=== PATIENT | female | born 1965 | race Caucasian/White ===

== ENCOUNTER → 2018-03-20 15:02 | Emergency (ER) | payer OTHER, SELFPAY ==
--- NOTE | 2018-03-20 15:02 | DT_ITS ---
This patient was seen during an EMR downtime March 20, 2018 - March 27, 2018. This patient may have a combination of paper and electronic documentation or all paper documentation. All documentation is viewable within the e-chart portion of [facility] for each patient visit.
--- NOTE | 2018-03-20 15:34 | CT_ITS ---
STUDY: CT BRAIN WITHOUT CONTRAST REASON FOR EXAM: Female, 53 years old. Headache RADIATION DOSAGE (If Supplied By Facility): CTDIvol = ( 60.81 ) mGy, DLP = ( 1021.47 ) mGycm TECHNIQUE: Transaxial CT imaging of the brain was performed without administration of intravenous contrast material. Individualized dose optimization techniques were used for this CT. COMPARISON: None. FINDINGS: Normal soft tissue structures. Normal calvarium. Normal size ventricles and extra-axial spaces for the patient's age. Normal white matter tracts of the cerebral hemispheres. Normal basal ganglia and thalami. Normal brainstem. Normal cerebellum. There is no intracranial hemorrhage. There are no findings of an acute ischemic infarction. There is minimal mucosal thickening of the maxillary sinuses. CT/Brain/Head without Contrast IMPRESSION: Minimal mucosal thickening of the maxillary sinuses. The study is otherwise unremarkable. Electronically Signed: Dariusz Tavares MD at 17:16 EDT , Service support ,
[2018-03-23 10:40] LABS: Glucose 127 mg/dL (74-106)
[2018-03-23 10:41] LABS: Anion Gap 7 (5-15); BUN 14 mg/dL (7-18); BUN/Creat Ratio 20.9 RATIO (10-20); Calcium,Total 8.7 mg/dL (8.5-10.1); Chloride 110 mmol/L (98-107); Creatinine, Serum 0.67 mg/dL (0.55-1.02); EST Glomerular Filtration Rate 97 mL/min (>60); Est Glom Filt Rate - Afr Amer 118 mL/min (>60); Potassium 3.7 mmol/L (3.5-5.1); Sodium Level 140 mmol/L (136-145)
[2018-03-24 10:44] LABS: Absolute Lymphocyte Count 1.39 X10^3/ul (0.83-4.51); Absolute Neutrophil Count 4.7 X10^3/uL (2.0-7.7); Basophil# 0.02 X10^3/uL; Basophil% 0.3 % (0-1); Eosinophil# 0.13 X10^3/uL; Hematocrit 36.7 % (37-47); Hemoglobin 12.2 g/dl (12.0-15.0); Lymphocyte # 1.39 X10^3/ul (4.0); Mean Corp Hgb Conc 33.2 g/gl (32-36); Mean Corpuscular Hgb 32.1 pg (27.0-32.0); Mean Corpuscular Volume 96.6 fL (81-99); Mean Platelet Vol. 10.8 fl (6.2-12.0); Monocyte# 0.41 X10^3/uL; Monocyte% 6.2 % (0-10); Neutrophil # 4.68 X10^3/uL (2.7-7.7); Neutrophil % 70.5 % (47-70); POSITIVE COUNT NO; POSITIVE DIFFERENTIAL NO; POSITIVE MORPHOLOGY NO; Platelet Count 203 K/mm3 (150-450); RBC Distribution Width CV 11.9 % (11.6-14.6); RBC Distribution Width SD 40.5 fl (35.1-43.9); White Blood Count 6.6 K/mm3 (4.4-11.0)
== END ==
PROVIDERS: Emergency Medicine; Emergency Provider Emergency Medicine; Family Provider Family Medicine; PCP Family Medicine
DX: R51 Headache (principal); J32.9 Chronic sinusitis, unspecified; E03.9 Hypothyroidism, unspecified; Z79.899 Other long term (current) drug therapy; Z87.891 Personal history of nicotine dependence
CPT/HCPCS: 36415; 70450; 80048; 85025; 96361; 96374; 96375; 99284; J7030; A4216

== ENCOUNTER 2019-04-23 08:00 | Outpatient (RCR) | payer OTHER, SELFPAY ==
--- NOTE | 2019-04-16 07:43 | HP.PTEVAL ---
Patient's Visit Information KRISH ECHEVERRIA is a 54 year old F referred to Physical Therapy by Guru Kong MD with a diagnosis of L shoulder pain. Date of Evaluation: 04/16/19 Physical Therapist: Clifford Villalobos, NIAT, OCS, CSCS - Visit Plan Frequency: 1x/Week Duration: 4-6 Weeks Plan: weekly to progress HEP for shoulder nad postural strength, ensure activity modification for hammer theory, stretch pecs. ice as needed. - Subjective Findings: L shoulder hurts since October worsening possibly due to tetanus booster according to patient. Can't point to anything else. Did start a workout in October. Hard to sleep at night now. 5/10 at night, comfortable at rest and low elevations. Dulla ache most of time 1/10. 6 hours per night sleep but shoulder may keep her up in middle of night. 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 Especially overhead. Basic ADLs are OK except moving in certain ways overhead. Folding laundry and hanging up can be difficult. Doctor sent here after annual physical. No other treatment or diagnostics yet. Does ballroom dancing which can hurt. - Pain L shoulder Pain Intensity (Out of 10): 1 Pain Intensity Range: 1, 4 - Objective Posture is slight forward head and prottracted scapula. Tender to palpation mildly over L supraspinatus insertion. + neer test, - Gomes Subhash. - ext rotation lag test. - sulcus. - drop arm. Full UE AROM B but L hurts end range of ext rot, int rot, and flexion. strength is 4/5 L abd, ext rotation both with pain, 4+ rhomboids and flexion , 5/.5 IT, biceps, triceps and wrist all on L. R shoulder and elbow and wrist 5/5. reflexes 2/3 bi and tri. Sensation B UE WNL to gross light touch. Normal transfers and gait. - Goals Goal 1:: Sleep without being kept up at night. Goal Time Frame: 4-6 Weeks Goal 2:: Reach overhead and behind back without pain. Goal Time Frame: 4-6 Weeks Goal 3:: Pt feel 90% back to normal in L shoulder with no greater than transient 1/10 pain. Goal Time Frame: 4-6 Weeks Goal 4:: I appropr HEP to minimize future problems. Goal Time Frame: 4-6 Weeks - Rehabilitation Potential Physical Therapy Diagnosis: L shoulder pain likely supraspinatus tendonitis Rehabilitation Potential: Fair - Anticipated Interventions Patient/Client Instruction: Educate patient on: Condition, Plan of Care For the Purpose of:: To decrease pain, To improve nutrient delivery to tissue, To increase tolerance to activity/condition/position Therapeutic Exercise to Include: Strength training, Flexibilty training, Scapular Strength/Stabilization For the Purpose of:: To decrease pain, To increase tolerance to activity/condition/position, To improve ability of physical actions for home/community/work/leisure Manual Therapy Techniques to Include: Mobilization For the Purpose of:: To improve muscle performance and motor function, To increase tolerance to activity/condition/position Cryotherapy (ice pack, ice massage): Yes For the Purpose of:: To decrease swelling/inflammation Thank you for the opportunity to evaluate your patient. For Medicare and Medicare HMO plans, please review the plan of care and approve it. It will need to be FAXED BACK to us at [phone] for Medicare purposes. For Medicare only, by signing this I certify the plan of care. Please let me know if there are questions or concerns regarding this plan of care. Physician Signature: Date:
--- NOTE | 2019-07-05 10:49 | HP.PT.NRP ---
HP - Discharge Summary (1) - Patient Information KRISH ECHEVERRIA was seen in my office for initial evaluation on 04/16/19. The following Plan of Care was established for this patient: Initial Frequency: 1x/Week Initial Duration: 4-6 Weeks - Anticipated Interventions Patient/Client Instruction: Educate patient on: Condition, Plan of Care For the Purpose of:: To decrease pain, To improve nutrient delivery to tissue, To increase tolerance to activity/condition/position Therapeutic Exercise to Include: Strength training, Flexibilty training, Scapular Strength/Stabilization For the Purpose of:: To decrease pain, To increase tolerance to activity/condition/position, To improve ability of physical actions for home/community/work/leisure Manual Therapy Techniques to Include: Mobilization For the Purpose of:: To improve muscle performance and motor function, To increase tolerance to activity/condition/position Cryotherapy (ice pack, ice massage): Yes For the Purpose of:: To decrease swelling/inflammation This patient was last seen in our office 05/03/19. Pertinent comments regarding their Physical therapy will appear below: Pt seen two visits of POC and neglected to schedule or attend any further visits. I will discontinue due to non attendance as it has been over two months. At this point I will be discontinuing this patient from physical therapy. I would be happy to see this patient again in the future if found appropriate by the physician. Thank you! Clifford Villalobos, DPT, OCS, CSCS
== END 2019-04-23 19:00 | disposition home or self-care (01) ==
LOC: PT 08:00
PROVIDERS: Family Provider Family Medicine; PCP Family Medicine; Referring Provider Family Medicine; Visit Provider Family Medicine
DX: M25.512 Pain in left shoulder (principal)
CPT/HCPCS: 97110; 97161

== ENCOUNTER 2020-05-06 08:05 | Emergency (ER) | payer OTHER, SELFPAY ==
[2020-05-06 08:06] VITALS: BP 137/82; PULSE 68; RESP 16; TEMP 36.3; O2SAT 100; BMI 27.1
--- NOTE | 2020-05-06 08:40 | RAD_ITS ---
STUDY: X-RAY - CERVICAL SPINE REASON FOR EXAM: Female, 55 years old. Fell down steps Perry, pain, nausea, dizziness, FUNEZ TECHNIQUE: 3 view(s) of the cervical spine were obtained. COMPARISON: None FINDINGS: Normal anterior atlantoaxial articulation. Normal odontoid process. There is straightening of the normal cervical lordosis. Normal vertebral bodies and endplates. Mild disc space narrowing. Normal visualized intervertebral neuroforamina. The soft tissue structures are unremarkable. RAD/Cerv Spine 2 or 3 Views IMPRESSION: Mild degenerative changes, no acute findings Electronically Signed: Billy Dobbs MD at 8:58 EDT , Service support ,
--- NOTE | 2020-05-06 08:40 | RAD_ITS ---
STUDY: X-RAY - PELVIS REASON FOR EXAM: Female, 55 years old. Fell down steps Tuesday, pain, nausea, dizziness, FUNEZ TECHNIQUE: One view of the pelvis was obtained. COMPARISON: None. FINDINGS: There is a non-specific bowel gas pattern. Normal visualized soft tissue structures. Normal bilateral iliac wings, sacroiliac joints and visualized sacrum. Normal visualized bilateral superior and inferior pubic rami. Normal pubic symphysis. Normal ischial tuberosities. Normal visualized right femoral head. Normal right acetabulum. Normal right hip joint. Normal visualized left femoral head. Normal left acetabulum. Normal left hip joint. RAD/Pelvis 1 or 2 Views IMPRESSION: Normal x-ray examination of the pelvis. Electronically Signed: Billy Dobbs MD at 8:58 EDT , Service support ,
--- NOTE | 2020-05-06 09:23 | ED.DCSUM_ITS ---
- ER Visit Summary Date of Service: 05/06/20 Chief Complaint: [Fall] History of Present Illness: The patient is a 55 F [presents to the emergency department after sustaining a fall 5 days ago. Patient states that she was coming down the steps when she slipped and fell onto her buttocks. Patient then slid down about 6 steps. She does not believe that she hit her head. She denies loss of consciousness. Patient states that over the last 5 days she has had discomfort in her neck and intermittent headaches. She has had some intermittent dizziness. Patient denies any chest or abdomen pain. She has had some nausea but no vomiting. Patient does complain of bruising to her right buttock. She denies any numbness or tingling in extremities. She denies weakness in extremities. She is not anticoagulated. She tells me she has no medical history otherwise. Patient is a smoker.] Physical Examination: [HEENT-PERRLA, EOMI. Cranial nerves II through XII grossly intact. TMs clear. Mucous membranes moist. No adenopathy. No external evidence of trauma to her head. No hemotympanum. Patient does have some mild diffuse tenderness over the cervical paraspinal musculature. Minimal tenderness over the cervical spine. Cardiovascular-regular rate and rhythm without murmur or ectopy Lungs-clear to auscultation, chest wall stable without crepitus or subcu emphysema Abdomen-normoactive bowel sounds, soft, nontender, no rebound or rigidity, no peritoneal signs. Neuro dfsm-kdqmlr-hrwg and heel agosto testing within normal limits, negative Romberg, negative , Fundi benign Extremities-intact ?4, normal range of motion, normal pulses. Right buttock- patient does have some ecchymosis and bruising noted to the medial aspect of her right buttock. No significant tenderness over the sacrum or coccyx.] Test Results: [X-rays of the cervical spine obtained showed degenerative changes without any evidence of fracture or dislocation. X-rays of the pelvis obtained showed no fractures.] Emergency Department Course and Treatment: [This point discussed results with patient. I do not feel CT imaging of her brain is indicated. Patient had no evidence of injury to her head. She is not been vomiting. She had a normal neurologic exam.] Treatment Plan: [Patient advised use ibuprofen or Tylenol for discomfort. She is advised to push fluids. Patient to follow-up with her primary care physician within the next 3 to 5 days.] Disposition: [Discharged home in stable condition] Impression: [Mechanical fall Cervical strain Contusion right buttock] This note was generated with [employer] dictation software. It may contain incorrect words, spelling, and punctuation that were not noted in review of the chart prior to signing ED Disposition - Plan for ED Patient: Referrals: Guru Kong MD [Primary Care Provider] -
--- NOTE | 2020-05-06 09:27 | ED.DEP ---
ED Disposition - Plan for ED Patient: Instructions: ED Mechanical Fall, ED Sprain Strain Neck, ED SOFT TISSUE CONTUSION Referrals: Guru Kong MD [Primary Care Provider] - 3-5 Days
[2020-05-06 09:36] VITALS: BP 131/74; PULSE 81; RESP 18; O2SAT 100
--- NOTE | 2020-05-06 09:37 | ED.RN ---
THIS NURSE REVIEWED D/C INSTRUCTIONS WITH PT AND VISITOR. PT VERBALIZED UNDERSTANDING OF INSTRUCTIONS. PT DENIES FURTHER NEEDS OR QUESTIONS AT THIS TIME. PT AMBULATES FROM ROOM ON OWN WITHOUT ASSISTANCE FROM STAFF OR VISITOR.
== END 2020-05-06 09:38 | disposition home or self-care (01) ==
PROVIDERS: Emergency Provider Emergency Medicine; PCP Family Medicine
DX: S16.1XXA Strain of muscle, fascia and tendon at neck level, initial encounter (principal); W10.9XXA Fall (on) (from) unspecified stairs and steps, initial encounter; Y93.89 Activity, other specified; Y92.89 Other specified places as the place of occurrence of the external cause; Y99.9 Unspecified external cause status; S30.0XXA Contusion of lower back and pelvis, initial encounter; Z72.0 Tobacco use
CPT/HCPCS: 72040; 72170; 99282

== ENCOUNTER 2023-05-23 01:26 | Emergency (ER) | payer OTHER, SELFPAY ==
[2023-05-23 01:27] VITALS: BP 131/76; PULSE 70; RESP 16; TEMP 35.9; O2SAT 97; BMI 23.4
--- NOTE | 2023-05-23 01:47 | EX.ED.DYSGE1 ---
HPI History of Present Illness Chief Complaint: Other, Pain/Inj Informant: patient Narrative Narrative: Patient presents with a worsening rash. Patient states that approximately week ago she had a sore on her right lower chin area. 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 She was seen in urgent care Tuesday morning. They started her on mupirocin and Keflex. It really has not made any notable change although the area on her chin is starting to dry up. But since starting the medicine she has noticed more lesions on her posterior neck and around her ear. They burn staying and itch. They are only on the right side. Of note, patient did have chickenpox when she was about 30 years old. She has never had shingles. [facility] Medical History Hypothyroid Home Medications acyclovir 800 mg tablet 800 mg PO 5X/DAY #35 TABLETS 05/23/23 [Rx Last Taken Unknown] hydrocodone-acetaminophen 5-325mg 5mg-325mg 1 tab PO Q6H PRN PRN Pain 3 days #10 TABLETS 05/23/23 [Rx Last Taken Unknown] levothyroxine 100 mcg tablet (Synthroid) 100 mcg PO DAILY 05/23/23 [History Last Taken Unknown] prednisone 10 mg tablet 10 mg PO DAILY #48 TABLETS 05/23/23 [Rx Last Taken Unknown] Allergy/AdvReac Type Severity Reaction Status Date / Time Penicillins Allergy Anaphylaxis Verified 05/06/20 08:08 Social History Smoking Status: Current every day smoker tobacco type: cigarettes ROS ROS ED Constitutional Constitutional ED: Denies chills, fever(s), subjective, sweats or weight loss Eyes Eyes: Denies blurry vision, change in vision or diplopia ENT ENT ED: Denies rhinorrhea or sore throat Cardiovascular Cardiovascular: Denies chest pain Respiratory/Chest Respiratory/Chest: Denies cough Gastrointestinal Gastrointestinal: Denies nausea or vomiting Musculoskeletal Musculoskeletal: Reports neck pain Integumentary Reports rash Neurologic Neurologic: Denies headache(s), paresthesias or weakness Hematologic/Lymphatic Hematologic/Lymphatic: Denies easy bleeding, easy bruising or lymphadenopathy Allergic/Immunologic Allergic/Immunologic ED: Denies mouth swelling, tongue swelling or urticaria EXAM Physical Exam Narrative Exam Narrative: Patient awake alert no acute distress sitting comfortably in bed. HEENT showed a dry area of lesions just on the lower edge of the right mandible. But she has a few areas of erythema at the lower portion of her mandible below the earlobe. And then on the back of the nape of the neck occipital area of her head. These are raised red in a couple of them are vesicular. They are all on the right side. They do not look like abscesses. These look more like shingles. Eyes show no involvement at all. Yanez sign is negative. Neck: See above. No lymphadenopathy. Lungs are clear bilaterally no pain with a deep breath. Heart is regular. Extremities do not show any involvement Skin: See above. Const Vital Signs: 05/23/23 01:27 Temperature 96.6 F L Temperature Source Temporal Pulse Rate 70 Respiratory Rate 16 Blood Pressure 131/76 H Blood Pressure Mean 94 Pulse Ox 97 Oxygen Delivery Method Room Air MDM MDM MDM Narrative Medical decision making narrative: I think patient's symptoms actually represent shingles. I believe it is likely in mostly C2 dermatome. Although we are starting treatment a little later she does have new development of these lesions on her neck. I will start antivirals and prednisone. We discussed postherpetic neuralgia and that this can be a rather long process. She should follow-up with her physician for recheck. Discharge Plan Triage Chief Complaint: Other, Pain/Inj ED Provider: Jad Russ Dx/Rx/DC Orders Clinical Impression: Shingles Instructions: Shingles (Herpes Zoster) Prescriptions: New acyclovir 800 mg tablet 800 mg PO 5X/DAY Qty: 35 0RF prednisone 10 mg tablet 10 mg PO DAILY Qty: 48 0RF Rx Instructions: 6 po qd x 3 days, 4 po qd x 3 days, 2 po qd x 3 days, 1 po qd x 3 days hydrocodone-acetaminophen [hydrocodone-acetaminophen] 5-325 mg tablet 1 tab PO Q6H PRN PRN (Reason: Pain) 3 Days Qty: 10 0RF No Action levothyroxine [Synthroid] 100 mcg tablet 100 mcg PO DAILY [facility] Care Provider: [facility] Referrals: Na Lang MD [Med Staff - [employer]] - 3-5 Days NOT,DEFINED [Non-Staff] - Activity Restrictions/Additional Instructions: Follow-up with your doctor or Dr. Lang as above in the next few days to a week. Disposition Disposition: Home, Self Care
[2023-05-23] MEDS: predniSONE 20 MG Tablet 60 MG PO (01:50)
[2023-05-23] MEDS: Acyclovir 800 MG Tablet PO (01:53)
== END 2023-05-23 02:08 | disposition home or self-care (01) ==
LOC: ED 02:07
PROVIDERS: Emergency Provider Emergency Medicine; Visit Provider Emergency Medicine
DX: B02.9 Zoster without complications (principal); E03.9 Hypothyroidism, unspecified; F17.210 Nicotine dependence, cigarettes, uncomplicated; Z79.890 Hormone replacement therapy; Z79.899 Other long term (current) drug therapy
CPT/HCPCS: 99283